=== PATIENT | male | born 1985 | race Caucasian/White ===

== ENCOUNTER 2020-12-04 12:17 | Emergency (ER) | payer BC ==
[~2020-12-04] VITALS: Ht 172.7 cm; Wt 129.3 kg
--- NOTE | 2020-12-06 12:33 | EKG ---
[facility] [address] [facility] [place], [place] [address] Signed Normal sinus rhythm Normal ECG No previous ECGs available Confirmed by WILLA MCKEON DO ([id number]) on 12/06/2020 12:33:19 PM Electronically Signed By: WILLA MCKEON DO 12/06/20 1233 PATIENT NAME: HERNANDO NELSON Electrocardiogram DATE OF : 81 PHYSICIAN: WILLA MCKEON DO REPORT #: [id number] REPORT IS CONFIDENTIAL AND NOT TO BE RELEASED WITHOUT AUTHORIZATION
== END 2020-12-04 16:02 | disposition home or self-care (01) ==
LOC: ED 12:17
DX: R07.89 Other chest pain (principal); F17.200 Nicotine dependence, unspecified, uncomplicated
CPT/HCPCS: 71045; 80053; 84484; 85025; 93005; 93010; 99285-25; A9270

== ENCOUNTER 2021-03-24 11:35 | Emergency (ER) | payer BC ==
[~2021-03-24] VITALS: Ht 172.7 cm; Wt 129.3 kg
== END 2021-03-24 12:20 | disposition home or self-care (01) ==
LOC: ED 11:35
DX: S61.200A Unspecified open wound of right index finger without damage to nail, initial encounter (principal); W31.2XXA Contact with powered woodworking and forming machines, initial encounter; Z23 Encounter for immunization; F17.200 Nicotine dependence, unspecified, uncomplicated
CPT/HCPCS: 90471; 90714; 99282-25